=== PATIENT | male | born 1990 | race American Indian/Alaskan Native ===

== ENCOUNTER 2022-07-13 10:04 | Emergency (ER) | payer MEDICAID, OTHER ==
[2022-07-13] MEDS ORDERED: Sodium Chloride 0.9% 1,000 ML IV ONE (10:15)
[2022-07-13] MEDS ORDERED: Sodium Chloride 0.9% 10 ML Syringe FLUSH PRN (10:16)
[2022-07-13] MEDS ORDERED: Pantoprazole 40 MG Vial IVPUSH ONE (10:17)
[2022-07-13] MEDS ORDERED: MVI, Adult with Vitamin K 10 ML, Thiamine 100 MG, Folic Acid 1 MG, Magnesium Sulfate 3 ... IV SCH ×5 (10:30)
[2022-07-13 10:55] LABS: ESTIMATED GFR 102 mL/min (>60)
[2022-07-13] MEDS ORDERED: Proparacaine 0.5% Ophth Soln 15 ML Bottle EYERT ONE (11:15)
[2022-07-13] MEDS ORDERED: Erythromycin Base 0.5% Ophth Oint 1 GM Tube EYERT ONE (11:16)
[2022-07-13] MEDS ORDERED: Metoprolol Succinate 50 MG Tab.ER PO ONE (11:34)
[2022-07-13] MEDS ORDERED: Calcium Gluconate 10% 1 GM/10 ML SDV IVPUSH ONE (11:36)
[2022-07-14] MEDS ORDERED: metFORMIN 500 MG Tab PO SCH ×2 (09:00)
[2022-07-14] MEDS ORDERED: Levothyroxine 25 MCG Tab PO SCH (09:00)
[2022-07-14] MEDS ORDERED: Lisinopril 10 MG Tab PO SCH (09:00)
[2022-07-14] MEDS ORDERED: Citalopram 20 MG Tab PO SCH (09:00)
== END 2022-07-13 14:15 ==
LOC: JP.ED 10:04
DX: K70.10 Alcoholic hepatitis without ascites (principal); R00.0 Tachycardia, unspecified; E83.51 Hypocalcemia; H10.9 Unspecified conjunctivitis; E11.9 Type 2 diabetes mellitus without complications; Z79.899 Other long term (current) drug therapy; Z79.84 Long term (current) use of oral hypoglycemic drugs; Z20.822 Contact with and (suspected) exposure to COVID-19
CPT/HCPCS: 36415; 80053; 80305; 80307; 83735; 84443; 85025; 87635; 96361; 96365; 96366; 96375; 99285; A9270; C9113; J0610; J3411; J3475; J3490; J7030; U0002

== ENCOUNTER 2022-10-14 21:27 | Emergency (ER) | payer MEDICAID ==
[2022-10-14] MEDS ORDERED: Sodium Chloride 0.9% 10 ML Syringe FLUSH PRN (21:53)
[2022-10-14] MEDS ORDERED: LORazepam 2 MG/ML SDV IVPUSH ONE (21:53)
[2022-10-14] MEDS ORDERED: Ondansetron 4 MG/2 ML SDV IVPUSH PRN (21:53)
[2022-10-14] MEDS ORDERED: Metoprolol Tartrate 5 MG/5 ML SDV IVPUSH ONE (21:56)
[2022-10-14] MEDS ORDERED: Sodium Chloride 0.9% 1,000 ML IV SCH ×2 (22:00→23:45)
[2022-10-14 22:41] LABS: ESTIMATED GFR 102 mL/min (>60)
[2022-10-14 23:35] LABS: CORONAVIRUS COVID-19 NAA NEGATIVE (NEGATIVE)
[2022-10-15] MEDS ORDERED: D5 1/2 NS w/ 20 mEq/L KCl 1,000 ML IV SCH (00:45)
[2022-10-15] MEDS ORDERED: Metoprolol Succinate 50 MG Tab.ER PO ONE (01:24)
[2022-10-15] MEDS ORDERED: Potassium Chloride 20 MEQ in Premix Bag 1 BAG IV ONE (02:17)
[2022-10-15] MEDS ORDERED: Potassium Chloride 10 MEQ in Premix Bag 1 BAG IV ONE ×4 (02:22)
== END 2022-10-15 10:22 | disposition home or self-care (01) ==
LOC: JP.ED 21:27
DX: E11.65 Type 2 diabetes mellitus with hyperglycemia (principal); F10.920 Alcohol use, unspecified with intoxication, uncomplicated; I10 Essential (primary) hypertension; J45.909 Unspecified asthma, uncomplicated; E66.9 Obesity, unspecified; Z68.35 Body mass index [BMI] 35.0-35.9, adult; Z72.0 Tobacco use; Z79.899 Other long term (current) drug therapy; Z79.84 Long term (current) use of oral hypoglycemic drugs; Y90.3 Blood alcohol level of 60-79 mg/100 ml; Z20.822 Contact with and (suspected) exposure to COVID-19
CPT/HCPCS: 0241U; 36415; 80048; 80053; 80305; 80307; 81001; 82009; 82947; 83605; 83690; 84132; 85025; 96361; 96365; 96366; 96375; 99285; A9270; J1815; J2060; J3480; J3490; J7030

== ENCOUNTER 2023-01-08 07:02 | Emergency (ER) | payer MEDICAID ==
[2023-01-08] MEDS ORDERED: LORazepam 1 MG Tab PO ONE ×2 (07:28→08:06)
[2023-01-08] MEDS ORDERED: metFORMIN 500 MG Tab PO ONE (07:50)
[2023-01-08] MEDS ORDERED: Levothyroxine 25 MCG Tab PO ONE (07:52)
[2023-01-08] MEDS ORDERED: Metoprolol Tartrate 50 MG Tab PO ONE (07:53)
[2023-01-08] MEDS ORDERED: Lisinopril 10 MG Tab PO ONE (07:54)
[2023-01-08 08:00] LABS: ESTIMATED GFR 101 mL/min (>60)
[2023-01-09] MEDS ORDERED: Levothyroxine 50 MCG Tab PO SCH (07:30)
== END 2023-01-08 10:10 ==
LOC: JP.ED 07:02
DX: F10.10 Alcohol abuse, uncomplicated (principal); J45.909 Unspecified asthma, uncomplicated; E11.9 Type 2 diabetes mellitus without complications; I10 Essential (primary) hypertension; E66.9 Obesity, unspecified; Z68.35 Body mass index [BMI] 35.0-35.9, adult; Z79.899 Other long term (current) drug therapy; Z86.16 Personal history of COVID-19; Z72.0 Tobacco use; Z20.822 Contact with and (suspected) exposure to COVID-19
CPT/HCPCS: 36415; 80053; 80305; 80307; 85025; 87635; 99284; 99285; A9270; U0002